=== PATIENT | female | born 1970 | race Asian ===

== ENCOUNTER 2016-08-14 09:08 | Emergency (ER) | payer MEDICAID ==
[~2016-08-14] VITALS: Ht 160 cm; Wt 50.3 kg
[2016-08-14 09:08] VITALS: BP_SYST 98
--- NOTE | 2016-08-14 09:08 | NUR ---
Pt brought in by Cheikh gilbert for OK to book. Placed in bed 05
--- NOTE | 2016-08-14 09:10 | NUR ---
ER at bedside examining patient.
--- NOTE | 2016-08-14 09:12 | NUR ---
Pt h/o bipolar schizophrenia. Pt h/o htn,DM and TB by report. No acute distress noted.
--- NOTE | 2016-08-14 09:30 | NUR ---
urine specimen done.HCG (-). Rad dept bedside for study. Pt toleratd well.
[2016-08-14 10:14] VITALS: BP_SYST 101
--- NOTE | 2016-08-14 10:14 | NUR ---
Pt medically cleared to go into custody. A copy of the medical evaluation request was given to law enforcement. No s/s distress noted. Pt amulated out of the ED in handcuffs to waiting law enforcement vehicle.
== END 2016-08-14 10:14 ==
LOC: SED 09:08
DX: Z02.89 Encounter for other administrative examinations (principal); Z88.8 Allergy status to other drugs, medicaments and biological substances
CPT/HCPCS: 71010; 81025; 99283